=== PATIENT | male | born 1985 | race Caucasian/White ===

== ENCOUNTER 2018-05-04 11:39 | Emergency (ER) | payer MEDICARE, MEDICAID ==
[~2018-05-04] VITALS: Ht 177.8 cm; Wt 81.8 kg
[2018-05-04] MEDS ORDERED: PROP20TA18 PO (11:48)
[2018-05-04 14:25] VITALS: BP 100/83
[2018-05-04 14:34] LABS: AMPHET/METH SCREEN,URINE NEGATIVE (NEGATIVE); BARBITURATE SCREEN, URINE NEGATIVE (NEGATIVE); BENZODIAZEPINES SCREEN,URINE NEGATIVE (NEGATIVE); CANNABINOID SCREEN,URINE NEGATIVE (NEGATIVE); COCAINE SCREEN,URINE NEGATIVE (NEGATIVE); METHADONE SCREEN, URINE NEGATIVE (NEGATIVE); OPIATE SCREEN,URINE NEGATIVE (NEGATIVE)
[2018-05-04 14:35] LABS: PHENCYCLIDINE SCREEN,URINE NEGATIVE (NEGATIVE)
== END 2018-05-04 14:50 | disposition home or self-care (01) ==
LOC: EMS 11:40
DX: F10.129 Alcohol abuse with intoxication, unspecified (principal); F17.210 Nicotine dependence, cigarettes, uncomplicated; F12.90 Cannabis use, unspecified, uncomplicated; F19.90 Other psychoactive substance use, unspecified, uncomplicated; Z79.899 Other long term (current) drug therapy; Y90.7 Blood alcohol level of 200-239 mg/100 ml
CPT/HCPCS: 36415; 80307; 99283; G0480

== ENCOUNTER 2018-08-06 13:39 | Emergency (ER) | payer MEDICARE, MEDICAID ==
[~2018-08-06] VITALS: Ht 177.8 cm; Wt 81.8 kg
[~2018-08-06 13:39] MED LIST: PROP20TA18 PO
[2018-08-06 15:20] LABS: BASOPHILS % (AUTO) 0.2 % (0.0-2.0); EOSINOPHILS % (AUTO) 1.4 % (1.0-6.0); HEMATOCRIT 48.3 % (41-53); HEMOGLOBIN 16.4 g/dL (13.5-17.5); LYMPHOCYTES # (AUTO) 2.2 K/uL (1.0-4.8); LYMPHOCYTES % (AUTO) 31.7 % (22.0-44.0); MEAN CORPUSCULAR HEMOGLOBIN 30.4 pg (26.0-34.0); MEAN CORPUSCULAR HGB CONC 33.9 G/dL (31.0-37.0); MEAN CORPUSCULAR VOLUME 90 fL (80-100); MONOCYTES # (AUTO) 0.7 K/uL (0.1-1.0); MONOCYTES % (AUTO) 10.7 % (2.0-9.0); NEUTROPHILS # (AUTO) 3.8 K/uL (1.8-7.7); PLATELET COUNT (AUTO) 319 K/uL (150-450); RED BLOOD CELL COUNT(AUTO) 5.39 MIL/uL (4.50-5.90); RED CELL DISTRIBUTION WIDTH 13.8 % (11.5-14.5)
[2018-08-06 15:34] LABS: ANION GAP 13 mmol/L (8-16); CALCIUM, TOTAL 8.7 mg/dL (8.8-10.5); CARBON DIOXIDE 24 mmol/L (22-29); CHLORIDE 108 mmol/L (98-107); GLOMERULAR FILTR. RATE CALC > 60 mL/min (>60); GLUCOSE,RANDOM 105 mg/dL (70-110); POTASSIUM 3.9 mmol/L (3.5-5.1); SODIUM SERUM 145 mmol/L (136-145); UREA NITROGEN, BLOOD 14 mg/dL (7-18)
[2018-08-06 15:41] LABS: ALANINE AMINOTRANSFERASE 41 U/L (12-78); ALBUMIN 3.6 g/dL (3.4-5.0); ALKALINE PHOSPHATASE 69 U/L (46-116); ASPARTATE AMINOTRANSFERASE 32 U/L (15-37); BILIRUBIN,TOTAL 0.2 mg/dL (0.1-1.0); TOTAL PROTEIN, SERUM 7.2 g/dL (6.4-8.2)
[2018-08-06 16:20] LABS: AMPHET/METH SCREEN,URINE NEGATIVE (NEGATIVE); BARBITURATE SCREEN, URINE NEGATIVE (NEGATIVE); BENZODIAZEPINES SCREEN,URINE NEGATIVE (NEGATIVE); CANNABINOID SCREEN,URINE NEGATIVE (NEGATIVE); COCAINE SCREEN,URINE NEGATIVE (NEGATIVE); METHADONE SCREEN, URINE NEGATIVE (NEGATIVE); OPIATE SCREEN,URINE NEGATIVE (NEGATIVE)
[2018-08-06 16:21] LABS: PHENCYCLIDINE SCREEN,URINE NEGATIVE (NEGATIVE)
[2018-08-06 16:42] VITALS: BP 118/71
== END 2018-08-06 17:02 | disposition home or self-care (01) ==
LOC: EMS 13:40
DX: F10.20 Alcohol dependence, uncomplicated (principal); M54.9 Dorsalgia, unspecified; F17.210 Nicotine dependence, cigarettes, uncomplicated; Y90.7 Blood alcohol level of 200-239 mg/100 ml
CPT/HCPCS: 36415; 80053; 80307; 85025; 99283; 99406; G0480